=== PATIENT | female | born 1950 | race Caucasian/White ===

== ENCOUNTER → 2019-04-23 10:35 | Outpatient (CLI) | payer MEDICARE, SELFPAY ==
--- NOTE | ~2019-04-23 | XR_ITS ---
EXAMINATION: XR knee RT 3V DATE: 04/23/2019 10:47 INDICATION: Right knee pain. TECHNIQUE: 3 views of right knee were obtained. COMPARISON: None. FINDINGS: There is lateral subluxation of patella. No fracture. There is mild osteoarthritis of media l and patellofemoral compartments. No knee joint effusion. IMPRESSION: 1. Mild right knee osteoarthritis. Reviewed, dictated and finalized at location A. OMER ENGAGEMENT MANAGER
== END ==
PROVIDERS: PCP Family Medicine; Visit Provider Family Medicine
DX: M17.11 Unilateral primary osteoarthritis, right knee (principal)
CPT/HCPCS: 73562

== ENCOUNTER 2019-04-29 10:57 | Outpatient (CLI) | payer MEDICARE, SELFPAY ==
--- NOTE | ~2019-04-29 | MR_ITS ---
EXAMINATION: MR knee RT wo con DATE: 04/29/2019 11:51 INDICATION: Right knee pain TECHNIQUE: Magnetic resonance imaging (MRI) of the right knee was performed without intravenous contr ast. Sequences included coronal PD-weighted FSE, coronal PD-weighted FS FSE, sagittal T2-weighted FS E, sagittal PD-weighted FS FSE and axial PD weighted fat saturated FSE. COMPARISON: None. FINDINGS: Medial compartment: There appears be a displaced meniscal flap extending anteriorly and laterally into the intercondylar notch from the medial side of the posterior horn likely arising from the more lateral posterior horn and the meniscal body which appear smaller than expected relative to the size of the anterior horn. V ertical parrot beak configuration tear plane at the remaining posterior horn of the medial meniscus w hich begins along the free edge at the midportion of the posterior horn and extending laterally and p eripherally toward the junction of the body and posterior horn. There is increased signal extending t o contact the inferior articular surface of the meniscal body likely along the margin of a longitudin al horizontal tear plane with displacement of the meniscal tissue inferior to the tear plane as previ ously detailed. Mild chondral surface regularity at the central aspect of the lateral tibial plateau and anterior weightbearing medial femoral condyle. Lateral compartment: Lateral meniscus is normal. Mild partial-thickness fissure at the medial side of the lateral tibial p lateau. Patellofemoral compartment: Partial-thickness patellar cartilage loss with chondral surface irregularity primarily along the ceph alad half of the patella. Partial-thickness chondral fissuring along the inferior half of the medial and lateral patellar facets. Mild subarticular cystic change at the cephalad aspect of the patellar a pical ridge. Trochlear cartilage is relatively preserved. Ligaments and tendons: Anterior and posterior cruciate ligaments are normal. The medial collateral ligament and fibular yony ateral ligament complex are normal. Patellar tendon is normal. Mild distal quadriceps tendinopathy. T he visualized medial and lateral hamstring tendons as well as the iliotibial band are normal. Fluid: Small right knee joint effusion. 6.7 x 1.4 x 0.8 cm Killian's cyst. Prepatellar edema without discrete bursal fluid collection. Osseous/other: Minimal lateral patellar tilt and subluxation. No fracture or pathologic marrow replacing process. IMPRESSION: 1. Complex medial meniscal tear with a displaced meniscal flap arising from the body and posterior ho rn which extends anteromedially from the posterior root into the intercondylar notch. 2. 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 3. Small right knee joint effusion with moderate sized Killian's cyst. Reviewed, dictated and finalized at location A. CTION MOLDING SUPERVISOR IMPRESSION: 1. Complex medial meniscal tear with a displaced meniscal flap arising from the body and posterior horn which extends anteromedially from the posterior root i nto the intercondylar notch. 2. Mild tricompartmental osteoarthritis with moderate to high-grade patellar ch ondromalacia and small regions of moderate grade chondromalacia in the medial a nd lateral compartments. 3. Small right knee joint effusion with moderate sized Killian's cyst.
== END 2019-04-29 10:58 | disposition home or self-care (01) ==
PROVIDERS: PCP Family Medicine; Visit Provider Family Medicine
DX: S83.231A Complex tear of medial meniscus, current injury, right knee, initial encounter (principal); M17.11 Unilateral primary osteoarthritis, right knee; M25.461 Effusion, right knee
CPT/HCPCS: 73721

== ENCOUNTER 2019-12-31 06:40 | Outpatient (NON) | payer MEDICARE, SELFPAY ==
[2019-12-31 17:47] LABS: SARS-CoV-2 RNA PCR Negative
== END 2019-12-31 06:41 ==
PROVIDERS: PCP Family Medicine; Visit Provider Physician Assistant
DX: Z20.828 Contact with and (suspected) exposure to other viral communicable diseases (principal); R50.9 Fever, unspecified
CPT/HCPCS: 87635; C9803; U0003

== ENCOUNTER 2020-04-12 07:49 | Outpatient (CLI) | payer MEDICARE, SELFPAY ==
--- NOTE | ~2020-04-12 | MM_ITS ---
EXAMINATION: MM screening [facility] w michelle HISTORY: Screening TECHNIQUE: Craniocaudal and mediolateral oblique 3-D tomosynthesis images were obtained and synthetic 2-D images were generated. CAD analysis was submitted and interpreted. COMPARISON: Comparison to multiple prior studies sequentially, with oldest reviewed study dated 08/13. BREAST PARENCHYMAL COMPOSITION: There are scattered areas of fibroglandular density. FINDINGS: There is no evidence of suspicious mass, calcification, or architectural distortion to sugg est malignancy in either breast. There has been no suspicious interval change. IMPRESSION: 1. No mammographic evidence of malignancy. 2. Recommend routine screening mammography in one year. BI-RADS Category 1: Negative Reviewed, dictated and finalized at location A. TICAL SCIENTIST
== END 2020-04-12 07:50 | disposition home or self-care (01) ==
LOC: ANHIMG 07:52
PROVIDERS: PCP Family Medicine; Visit Provider Family Medicine
DX: Z12.31 Encounter for screening mammogram for malignant neoplasm of breast (principal)
CPT/HCPCS: 77063; 77067

== ENCOUNTER → 2020-08-20 01:02 | Outpatient (CLI) | payer MEDICARE, SELFPAY ==
[2020-08-20 19:37] LABS: SARS-CoV-2 RNA PCR Negative
== END ==
PROVIDERS: Visit Provider Internal Medicine Gastroenterology
DX: Z01.812 Encounter for preprocedural laboratory examination (principal); Z20.822 Contact with and (suspected) exposure to COVID-19
CPT/HCPCS: C9803; U0003; U0005

== ENCOUNTER 2020-08-23 00:22 | Day surgery (SDC) | payer MEDICARE, SELFPAY ==
[2020-08-11 15:08] VITALS: BMI 26.6
[2020-08-23 06:27] VITALS: BP 129/82; PULSE 82; RESP 18; TEMP 36.6; O2SAT 99; BMI 27.6
[2020-08-23] MEDS: LACTATED RINGERS 1,000 ML 150 ML IV CONT (06:39)
--- NOTE | 2020-08-23 07:06 | WPDANESEPPF ---
Anes - Initial Pre Proc Eval Procedure: Operation Date: 08/23/20 07:30 Proposed Procedures p Screening Colonoscopy - Trenton Kate MD Date/Time: 08/23/20 07:06 Surgeon: Trenton Kate MD Pre Op Diagnosis: hx of colon polyps Patient Data Age: 70 Gender: F Height: 5 ft 3 in Weight: 70.6 kg Last Vital Signs Temp 97.9 F 08/23/20 06:27 Pulse 82 08/23/20 06:27 Resp 18 08/23/20 06:27 BP 129/82 08/23/20 06:27 Pulse Ox 99 08/23/20 06:27 Allergies Allergy/AdvReac Type Severity Reaction Status Date / Time cephalexin Allergy Unknown Hives Verified 08/23/20 06:25 Iodinated Contrast Media Allergy Unknown Anaphylaxis Verified 08/23/20 06:25 morphine Allergy Unknown Nausea and Verified 08/23/20 06:25 Vomiting Penicillins Allergy Unknown Hives Verified 08/23/20 06:25 Contrast Media Allergy Mild Anaphylaxis Uncoded 08/23/20 06:25 Home Medications Medication Instructions Recorded Confirmed Type calcium citrate-vitamin D3 500 4 tablet PO BID 05/18/19 08/23/20 History mg-200 unit chewable tablet omega-3 fatty acids-fish oil 360 1 cap PO DAILY 05/18/19 08/23/20 History mg-1,200 mg capsule mecobalamin (vitamin B12) 1,000 1,000 mcg SUBLINGUAL DAILY 04/15/20 08/23/20 History mcg disintegrating tablet,sublingual pyridoxine (vitamin B6) 100 mg 100 mg PO DAILY 04/15/20 08/23/20 History tablet omeprazole magnesium 20 mg 20 mg PO DAILY #90 cap 07/07/20 08/23/20 Rx capsule,delayed release sodium,potassium,mag sulfates 17.5 See Rx Instructions PO .COMPLEX 07/28/20 08/11/20 Rx gram-3.13 gram-1.6 gram oral soln #354 ml ergocalciferol (vitamin D2) 1,250 See Rx Instructions .ROUTE 08/12/20 08/23/20 Rx mcg (50,000 unit) capsule .COMPLEX #12 each Patient hx anesthesia problems: none Family hx anesthesia problems: none PMFSH Past Medical History Medical History (Updated 07/12/20 @ 12:05 by Sravani Villa RN) Cervical disc disease Chronic idiopathic constipation Chronic renal insufficiency, stage III (moderate) FH: CAD (coronary artery disease) Gastroesophageal reflux disease without esophagitis History of basal cell carcinoma (BCC) Mixed hyperlipidemia Vitamin B12 deficiency Vitamin D deficiency Surgical History Surgical History Acute medial meniscus tear of right knee History of appendectomy (~1964) History of basal cell carcinoma excision (~1995) History of cholecystectomy (~2015) History of hysterectomy (~1996) Family History Family History Mother Hypertension Arthritis Father Family history of congestive heart failure Arthritis Other Family history of coronary artery disease Family history of osteoporosis Social History Social History Smoking status: Former smoker Second hand tobacco smoke exposure: No Alcohol intake: current Alcohol use details: rarely Substance use: never Substance use type: does not use Living arrangements: with family Gender identity (if verbalized by the patient): Female Spiritual care concerns: No Anes - Eval Final PreProcedure Day of Procedure 08/23/20 07:06 Patient weight: normal Heart: regular rate and rhythm Lungs: clear to auscultation Airway: Mallampati scale class II Neurological: alert and oriented Last oral intake: >/= 8 hours ASA classification: II Emergent: no Anesthetic plan: proceed Anesthesia type and monitoring: general GIVS and standard monitoring Informed Consent: The patient's anesthetic plan and its attendant risks and benefits were discussed with the patient/family/POA. Questions were solicited and answers provided to the satisfaction of the patient/family/POA.
--- NOTE | 2020-08-23 07:26 | WPDGICN ---
Assessment and Plan Assessment and plan (1) History of colon polyps: Code(s): Z86.010 - Personal history of colonic polyps Status: Acute Assessment and Plan: Patient has a history of colon polyps. For this reason surveillance colonoscopy is been advised at 5 year intervals. Endoscopy will be performed today. Further recommendations after endoscopy. GI Consult Note Consult date/time: 08/23/20 07:26 HPI: Ita Shrestha is a 70 year old female Presents for screening colonoscopy. Patient has a history of colon polyps. She states that her current weight appetite bowel movements are normal. In 2017 underwent cholecystectomy after an episode of gallstone pancreatitis. Patient states that her current bowel habits are normal. She denies abdominal pain. She has had no blood in her stools. Family history is noncontributory. Review of Systems Review of Systems: All systems reviewed & are unremarkable except as noted in HPI and below PMFSH Past Medical History Medical History (Updated 08/23/20 @ 07:27 by Trenton Kate MD) Cervical disc disease Chronic idiopathic constipation Chronic renal insufficiency, stage III (moderate) FH: CAD (coronary artery disease) Gastroesophageal reflux disease without esophagitis History of basal cell carcinoma (BCC) Mixed hyperlipidemia Vitamin B12 deficiency Vitamin D deficiency Surgical History Surgical History Acute medial meniscus tear of right knee History of appendectomy (~1964) History of basal cell carcinoma excision (~1995) History of cholecystectomy (~2015) History of hysterectomy (~1996) Family History Family History Mother Hypertension Arthritis Father Family history of congestive heart failure Arthritis Other Family history of coronary artery disease Family history of osteoporosis Social History Social History Smoking status: Former smoker Second hand tobacco smoke exposure: No Alcohol intake: current Alcohol use details: rarely Substance use: never Substance use type: does not use Living arrangements: with family Gender identity (if verbalized by the patient): Female Spiritual care concerns: No Meds Home Medications and Allergies Home Medications Medication Instructions Recorded Confirmed Type calcium citrate-vitamin D3 500 4 tablet PO BID 05/18/19 08/23/20 History mg-200 unit chewable tablet omega-3 fatty acids-fish oil 360 1 cap PO DAILY 05/18/19 08/23/20 History mg-1,200 mg capsule mecobalamin (vitamin B12) 1,000 1,000 mcg SUBLINGUAL DAILY 04/15/20 08/23/20 History mcg disintegrating tablet,sublingual pyridoxine (vitamin B6) 100 mg 100 mg PO DAILY 04/15/20 08/23/20 History tablet omeprazole magnesium 20 mg 20 mg PO DAILY #90 cap 07/07/20 08/23/20 Rx capsule,delayed release sodium,potassium,mag sulfates 17.5 See Rx Instructions PO .COMPLEX 07/28/20 08/11/20 Rx gram-3.13 gram-1.6 gram oral soln #354 ml ergocalciferol (vitamin D2) 1,250 See Rx Instructions .ROUTE 08/12/20 08/23/20 Rx mcg (50,000 unit) capsule .COMPLEX #12 each Allergies Allergy/AdvReac Type Severity Reaction Status Date / Time cephalexin Allergy Unknown Hives Verified 08/23/20 06:25 Iodinated Contrast Media Allergy Unknown Anaphylaxis Verified 08/23/20 06:25 morphine Allergy Unknown Nausea and Verified 08/23/20 06:25 Vomiting Penicillins Allergy Unknown Hives Verified 08/23/20 06:25 Contrast Media Allergy Mild Anaphylaxis Uncoded 08/23/20 06:25 Vital Signs Vital Signs - 24 hr 08/23/20 06:27 Temperature 97.9 F Pulse Rate 82 Respiratory Rate 18 Blood Pressure 129/82 Pulse Oximetry 99 Exam Narrative: Exam Narrative: Physical exam reveals patient be alert. Vital signs stable. HEENT exam unremarkable. Patient is
[2020-08-23 07:45] VITALS: BP 95/60; PULSE 70; RESP 15; O2SAT 95
[2020-08-23 07:55] VITALS: BP 95/58; PULSE 68; RESP 14; O2SAT 96
[2020-08-23 08:05] VITALS: BP 117/65; PULSE 66; RESP 12; O2SAT 97
== END 2020-08-23 08:20 | disposition home or self-care (01) ==
PROVIDERS: PCP Family Medicine; Visit Provider Internal Medicine Gastroenterology
PROC: 0DJD8ZZ Inspection of Lower Intestinal Tract, Via Natural or Artificial Opening Endoscopic (ICD-10-PCS; CPT 45378; principal; 2020-08-23 07:30)
DX: Z12.11 Encounter for screening for malignant neoplasm of colon (principal); Z86.010 Personal history of colon polyps; K64.8 Other hemorrhoids; K57.30 Diverticulosis of large intestine without perforation or abscess without bleeding; I25.10 Atherosclerotic heart disease of native coronary artery without angina pectoris; N18.30 Chronic kidney disease, stage 3 unspecified; E55.9 Vitamin D deficiency, unspecified; E53.8 Deficiency of other specified B group vitamins; Z85.828 Personal history of other malignant neoplasm of skin; E78.2 Mixed hyperlipidemia; Z87.891 Personal history of nicotine dependence; K21.9 Gastro-esophageal reflux disease without esophagitis
CPT/HCPCS: G0105; C9803; J2704; J7120; U0003; U0005

== ENCOUNTER 2021-05-19 09:24 | Outpatient (CLI) | payer MEDICARE, SELFPAY ==
--- NOTE | ~2021-05-19 | MM_ITS ---
EXAMINATION: MM screening [facility] BI w michelle HISTORY: Screening mammogram TECHNIQUE: Craniocaudal and mediolateral oblique 3-D tomosynthesis images were obtained and synthetic 2-D images were generated. CAD analysis was submitted and interpreted. COMPARISON: 04/12/2020, 03/02/2019, 02/24/2018 BREAST PARENCHYMAL COMPOSITION: There are scattered areas of fibroglandular density. FINDINGS: There is no evidence of suspicious mass, calcification, or architectural distortion to sugg est malignancy in either breast. There has been no suspicious interval change. IMPRESSION: 1. No mammographic evidence of malignancy. 2. Recommend routine screening mammography in one year. BI-RADS Category 1: Negative Reviewed, dictated and finalized at location A. OBIOLOGICAL LAB TECHNICIAN
== END 2021-05-19 09:25 | disposition home or self-care (01) ==
LOC: ANHIMG 09:26
PROVIDERS: PCP Family Medicine; Visit Provider Family Medicine
DX: Z12.31 Encounter for screening mammogram for malignant neoplasm of breast (principal)
CPT/HCPCS: 77063; 77067

== ENCOUNTER 2022-07-31 09:50 | Outpatient (CLI) | payer MEDICARE, SELFPAY ==
--- NOTE | ~2022-07-31 | MM_ITS ---
EXAMINATION: MM screening [facility] BI w michelle HISTORY: Screening mammogram TECHNIQUE: Craniocaudal and mediolateral oblique 3-D tomosynthesis images were obtained and synthetic 2-D images were generated. CAD analysis was submitted and interpreted. COMPARISON: 05/19/2021, 04/12/2020, 03/02/2019 BREAST PARENCHYMAL COMPOSITION: There are scattered areas of fibroglandular density. FINDINGS: No suspicious mass, calcification, or architectural distortion are identified in either camron ast to suggest malignancy. There has been no suspicious interval change. IMPRESSION: 1. No mammographic evidence of malignancy. 2. Recommend routine screening mammography in one year. BI-RADS Category 1: Negative Reviewed, dictated and finalized at location A.
== END 2022-07-31 09:51 | disposition home or self-care (01) ==
PROVIDERS: PCP Family Medicine; Visit Provider Family Medicine
DX: Z12.31 Encounter for screening mammogram for malignant neoplasm of breast (principal)
CPT/HCPCS: 77063; 77067

== ENCOUNTER → 2023-02-04 14:44 | Outpatient (CLI) | payer MEDICARE, SELFPAY ==
--- NOTE | ~2023-02-04 | XR_ITS ---
EXAMINATION: XR chest 2V 02/04/2023 15:13 INDICATION: Cough PROCEDURE: 2 view chest COMPARISON: 08/29/2017 FINDINGS: The lungs are clear. The cardiomediastinal silhouette is within normal limits. There are no pleural effusions. There is no pneumothorax suspected. There is mild scoliosis. IMPRESSION: 1: NO ACUTE CARDIOPULMONARY DISEASE. Reviewed, dictated and finalized at location B. SASH AND FRAME CARPENTER
== END ==
PROVIDERS: PCP Family Medicine; Visit Provider Family Medicine
DX: R05.9 Cough, unspecified (principal)
CPT/HCPCS: 71046

== ENCOUNTER 2023-10-14 08:27 | Outpatient (CLI) | payer MEDICARE, SELFPAY ==
--- NOTE | ~2023-10-14 | MM_ITS ---
EXAMINATION: MM screening [facility] BI w michelle HISTORY: Screening mammogram TECHNIQUE: Craniocaudal and mediolateral oblique 3-D tomosynthesis images were obtained and synthetic 2-D images were generated. CAD analysis was submitted and interpreted. COMPARISON: 07/31/2022, 05/19/2021, 04/12/2020 BREAST PARENCHYMAL COMPOSITION:Not Dense. There are scattered areas of fibroglandular density. FINDINGS: No suspicious mass, calcification, or architectural distortion are identified in either camron ast to suggest malignancy. There has been no suspicious interval change. IMPRESSION: No mammographic evidence of malignancy. Recommend routine screening mammography in one year. BI-RADS Category 1: Negative Reviewed, dictated and finalized at location .
== END 2023-10-14 08:28 | disposition home or self-care (01) ==
PROVIDERS: PCP Family Medicine; Visit Provider Family Medicine
DX: Z12.31 Encounter for screening mammogram for malignant neoplasm of breast (principal)
CPT/HCPCS: 77063; 77067

== ENCOUNTER 2024-06-29 07:57 | Outpatient (CLI) | payer MEDICARE, SELFPAY ==
--- NOTE | ~2024-06-29 | DEXA_ITS ---
Bone Density Report Name: SANJIV MENDEZ Age: 73 Sex: Female Ethnicity: White Date of : 1950 Indication: postmenopausal; screening for osteoporosis; parental hip fracture; hysterectomy; Referring Provider: STEPHENIE BARNES Study: Bone densitometry was performed. Exam Date: June 29, 2024 Accession number: [id number] Bone Density: Region BMD T-score Z-score Classification AP Spine(L1-L4) 0.885 -1.5 0.9 Osteopenia Femoral Neck (Left) 0.670 -1.6 0.5 Osteopenia Total Hip (Left) 0.861 -0.7 1.1 Normal Femoral Neck (Right) 0.658 -1.7 0.4 Osteopenia Total Hip (Right) 0.871 -0.6 1.2 Normal Total Hip Mean 0.866 -0.7 1.2 Normal World Health Organization criteria for BMD impression classify patients as: Normal (T-score at or above -1.0), Osteopenia (T-score between -1.0 and -2.5), or Osteoporosis (T-score at or below -2.5). 10-year Fracture Risk(1): Major Osteoporotic Fracture 20% Hip Fracture 11% Reported Risk Factors: [place] (), Neck BMD=0.658, BMI=30.5, parental fracture (1) FRAX(R) Version 3.08. Fracture probability calculated for an untreated patient. Fracture probability may be lower if the patient has received treatment. Previous Exams: Region Exam Age BMD T-score BMD Change BMD Change Date g/cm2 vs Baseline vs Previous AP Spine (L1-L4) 06/29/2024 73 0.885 -1.5 -0.136 (-13.3% -0.136 (-13.3% 03/30/2019 68 1.022 -0.2 Total Hip(Left) 06/29/2024 73 0.861 -0.7 -0.032 (-3.5%) -0.032 (-3.5%) 03/30/2019 68 0.893 -0.4 Total Hip(Right) 06/29/2024 73 0.871 -0.6 0.040 (4.9%)# 0.040 (4.9%)# 03/30/2019 68 0.831 -0.9 *Denotes significance at 95% confidence level, LSC for AP Spine = 0.022 g/cm2, LSC for Total Hip = 0.027 g/cm2 # Denotes dissimilar scan types or analysis methods Clinical Information Provided by Patient: Parent has had a hip fracture Has used the following medications: Vitamin D, Calcium Has the following medical conditions: Hysterectomy Patient maximum height was 63.0 Menopause Age: 46 No regular weight bearing exercise Drinks caffeinated beverages Onset of menses at age 12 Number of children 3 Impression: The patient has low bone mass, based on the Right Femoral Neck T-score. The patient has an estimated ten-year risk of hip fracture of 11% and an estimated ten-year risk of major fracture of 20%, based on the WHO FRAX algorithm. The patient has risk factors, including: parental hip fracture. No significant bone loss was observed. Discussion: BONE DENSITY IS LOW AT ONE OR MORE SKELETAL SITES. THE PATIENT'S BMD AND CLINICAL RISK FACTORS CONTRIBUTE TO THIS PATIENT'S HIGH RISK OF FRACTURE. This patient's lowest T-score is low at one or more skeletal sites. It meets the World Health Organization's (WHO) criteria for ?low bone mass? (T-score between -1.0 and -2.5). The patient's 10-year risk of hip fracture and 10 year risk of a major osteoporotic fracture as calculated by FRAX exceeds the threshold where pharmacological therapy is recommended by the National Osteoporosis Foundation (NOF). However, all treatment decisions require clinical judgment and consideration of individual patient factors, including patient preferences, comorbidities, previous drug use, risk factors not captured in the FRAX model (e.g., frailty, falls, vitamin D deficiency, increased bone turnover, interval significant decline in bone density) and possible under or overestimation of fracture risk by FRAX. The patient should follow a healthful lifestyle (good nutrition with adequate calcium and vitamin D, and appropriate weight-bearing exercise). Follow-Up: Consider a repeat BMD and Vertebral Fracture Assessment (VFA) exam in 2 years or sooner if medically necessary, to reassess this patient's status. Reported by: SYED on 06/29/2024 8:34:00 AM. Reviewed, dictated and finalized at location AConstantino TSE
== END 2024-06-29 07:58 | disposition home or self-care (01) ==
PROVIDERS: PCP Family Medicine; Visit Provider Family Medicine
DX: M85.89 Other specified disorders of bone density and structure, multiple sites (principal); Z78.0 Asymptomatic menopausal state
CPT/HCPCS: 77080

== ENCOUNTER 2024-11-09 09:49 | Outpatient (CLI) | payer MEDICARE, SELFPAY ==
--- NOTE | ~2024-11-09 | MM_ITS ---
EXAMINATION: MM screening [facility] BI w michelle HISTORY: Screening TECHNIQUE: Craniocaudal and mediolateral oblique 3-D tomosynthesis images were obtained and synthetic 2-D images were generated. CAD analysis was submitted and interpreted. COMPARISON: Comparison to multiple prior studies sequentially, with oldest reviewed study dated 02/24/2018. BREAST PARENCHYMAL COMPOSITION: There are scattered areas of fibroglandular density. FINDINGS: There is no evidence of suspicious mass, calcification, or architectural distortion to suggest malignancy in either breast. IMPRESSION: 1. No mammographic evidence of malignancy. 2. Recommend routine screening mammography in one year. BI-RADS Category 1: Negative Reviewed, dictated and finalized at location B.
== END 2024-11-09 09:50 | disposition home or self-care (01) ==
PROVIDERS: PCP Family Medicine; Visit Provider Family Medicine
DX: Z12.31 Encounter for screening mammogram for malignant neoplasm of breast (principal)
CPT/HCPCS: 77063; 77067